=== PATIENT | male | born 1990 | race Caucasian/White ===

== ENCOUNTER 2017-01-30 11:14 | Emergency (ER) | payer SELFPAY ==
[~2017-01-30] VITALS: Ht 170.2 cm; Wt 93.3 kg
[~2017-01-30 11:14] MED LIST: CIPR500T87 PO; ONDA4TAB10 PO
[2017-01-30 11:19] VITALS: BP 127/85
[2017-01-30] MEDS ORDERED: KETOROLAC 30 MG/1 ML ONE (11:48)
[2017-01-30] MEDS ORDERED: KETOROLAC 30 MG/1 ML IM ONE (12:00)
== END 2017-01-30 13:06 | disposition home or self-care (01) ==
LOC: ED 12:23
DX: M25.572 Pain in left ankle and joints of left foot (principal); F17.200 Nicotine dependence, unspecified, uncomplicated
CPT/HCPCS: 73610; 96372; 99284; J1885

== ENCOUNTER 2018-04-30 00:59 | Emergency (ER) | payer SELFPAY ==
[~2018-04-30] VITALS: Ht 170.2 cm; Wt 94.7 kg
[2018-04-30 01:01] VITALS: BP 131/80
[2018-04-30] MEDS ORDERED: ACETAMINOPHEN 500 MG TABLET PO ONE (01:30)
[2018-04-30] MEDS ORDERED: IBUPROFEN 200 MG TABLET PO ONE (01:30)
[2018-04-30] MEDS ORDERED: ACETAMINOPHEN 500 MG TABLET ONE (01:31)
[2018-04-30] MEDS ORDERED: IBUPROFEN 200 MG TABLET ONE (01:31)
== END 2018-04-30 02:14 | disposition home or self-care (01) ==
LOC: ED 01:44
DX: G89.11 Acute pain due to trauma (principal); M25.562 Pain in left knee; M25.572 Pain in left ankle and joints of left foot; S19.9XXA Unspecified injury of neck, initial encounter; F17.200 Nicotine dependence, unspecified, uncomplicated; V49.49XA Driver injured in collision with other motor vehicles in traffic accident, initial encounter; Y93.89 Activity, other specified; Y99.8 Other external cause status; Y92.410 Unspecified street and highway as the place of occurrence of the external cause
CPT/HCPCS: 99284